=== PATIENT | male | born 1990 | race African-American/Black ===

== ENCOUNTER 2017-08-05 18:18 | Emergency (ER) | payer SELFPAY ==
[2017-08-05 18:46] LABS: Bilirubin Negative (Negative); Blood, Urine Negative (Negative); Glucose, Urine (Dipstick) Negative (Negative); Ketone, Urine Negative (Negative); Nitrite Negative (Negative); Protein, Urine (Dipstick) Negative (Neg-Trace)
[2017-08-05] MEDS ORDERED: Lidocaine 1% PF 5 ML VIAL ONE (20:30)
[2017-08-05] MEDS ORDERED: cefTRIAXone\\ROCEPHIN 250 MG VIAL ONE (20:30)
[2017-08-05] MEDS ORDERED: Azithromycin 250 MG TAB ONE (20:30)
== END 2017-08-05 21:02 | disposition home or self-care (01) ==
LOC: ERS 18:18
DX: N34.2 Other urethritis (principal)
CPT/HCPCS: 81003; 87491; 87591; 96372; J0696; J2001

== ENCOUNTER 2018-06-24 09:39 | Emergency (ER) | payer SELFPAY | END 2018-06-24 11:09 | disposition home or self-care (01) | LOC: ERS 09:39 | DX: L03.115 Cellulitis of right lower limb (principal); L03.116 Cellulitis of left lower limb | CPT/HCPCS: 99283 ==